=== PATIENT | female | born 1980 | race Caucasian/White ===

== ENCOUNTER 2017-07-16 16:33 | Emergency (ER) | payer MEDICAID, SELFPAY ==
[2017-07-16 16:36] VITALS: BP 169/94; PULSE 83; RESP 17; TEMP 37.5; O2SAT 96; BMI 46.2
--- NOTE | 2017-07-16 17:00 | RAD_ITS ---
STUDY: X-RAY - RIGHT KNEE REASON FOR EXAM: Female, 36 years old. Knee pain. TECHNIQUE: 4 view(s) of the knee. COMPARISON: None. FINDINGS: Normal visualized distal femur. Normal visualized proximal tibia and fibula. Normal proximal tibiofibular articulation. Normal medial femorotibial compartment. Normal lateral femorotibial compartment. Normal patellofemoral articulation. There is lateral tilt and subluxation of the patella. The soft tissue structures are unremarkable. RAD/Knee 4 or More Views IMPRESSION: Lateral tilt and subluxation of the patella. No acute pathology. Electronically Signed: Alek Richey MD at 17:43 EDT , Service support ,
--- NOTE | 2017-07-16 18:44 | ED.DCSUM_ITS ---
- ER Visit Summary Date of Service: 07/16/17 Chief Complaint: Knee pain History of Present Illness: The patient is a 36 F who presents with 1 week of right knee pain. This is been gradual onset and constant. She describes it as dull and aching. It is worse with movement. She also complains of a feeling of stiffness. She denies any fall or injury. She denies any other complaints. Physical Examination: Afebrile vitals are stable Moist mucous membranes Heart regular rate and rhythm Lungs are clear Abdomen soft Active full range of motion of the right knee but it is painful there is no appreciable effusion she is neurovascularly intact distally with brisk capillary refill normal sensation the extensor mechanism is intact Test Results: Right knee x-ray shows lateral tilt and subluxation of the patella Emergency Department Course and Treatment: She was placed in a knee immobilizer and given crutches. She was given a prescription for naproxen for symptom control. She was referred to orthopedics for outpatient follow-up was discharged home. Treatment Plan: [] Disposition: Discharge Impression: Right knee pain This note was generated with [employer] dictation software. It may contain incorrect words, spelling, and punctuation that were not noted in review of the chart prior to signing ED Disposition - Plan for ED Patient: Chief Complaint: Lower Extremity Injury Referrals: Care Physician,No Primary [Primary Care Provider] -
--- NOTE | 2017-07-16 18:45 | ED.DEP ---
ED Disposition - Plan for ED Patient: Chief Complaint: Lower Extremity Injury Instructions: ED Sprain Knee Prescriptions: Naproxen [Naprosyn] 500 mg PO BID #20 tab Referrals: Care Physician,No Primary [Primary Care Provider] - Nilo Crooks MD [STAFF PHYSICIAN] -
== END 2017-07-16 19:00 | disposition home or self-care (01) ==
PROVIDERS: Emergency Provider Emergency Medicine
DX: M25.561 Pain in right knee (principal); Z72.0 Tobacco use
CPT/HCPCS: 73564; 99282

== ENCOUNTER → 2019-11-06 | Outpatient (CLI) | payer MEDICAID, SELFPAY | END | disposition home or self-care (01) | LOC: LABSPEC 11-07 14:38 | PROVIDERS: Visit Provider Family Medicine | DX: Z11.59 Encounter for screening for other viral diseases (principal) | CPT/HCPCS: 87635; U0003 ==

== ENCOUNTER 2021-03-21 16:53 | Emergency (ER) | payer MEDICAID, SELFPAY ==
[2021-03-21 16:54] VITALS: BP 157/76; PULSE 88; RESP 18; TEMP 36.6; O2SAT 99; BMI 43.8
--- NOTE | 2021-03-21 17:07 | EX.ED.UPPERE ---
HPI History of Present Illness HPI Narrative: Patient presents with laceration to her left thumb that occurred today. Patient was using a knife to open a package when it slipped and cut her left thumb. Patient is right-hand dominant. Patient describes her pain as throbbing. Patient states nothing makes it worse and nothing makes it better. Patient denies any paresthesias or weakness. Patient states the bleeding has been persistent since the injury. Patient denies any other injuries. Chief Complaint: Laceration Informant: patient Occured/Mechanism Comment: Cut with a knife Onset/Context/Timing Onset: Today Context: Sudden Onset Timing: Continuous Quality of Pain: Throbbing Worsened by: Nothing Relieved by: Nothing Associated Symptoms Associated Symptoms: Negative for Parasthesia, Weakness and Loss of Funtion PFSH PFSH Medical History HTN (hypertension) Home Medications naproxen 500 mg PO BID #20 tab 07/16/17 [Rx Last Taken Unknown] lisinopril 10 mg tablet ea PO 03/17/20 [History Last Taken Unknown] Allergy/AdvReac Type Severity Reaction Status Date / Time acetaminophen [From Vicodin] Allergy Mild Itching Verified 03/21/21 16:56 hydrocodone [From Vicodin] Allergy Mild Itching Verified 03/21/21 16:56 Family History (Updated 03/17/20 @ 14:12 by Beth Perez) Father Myocardial infarction CVA (cerebral vascular accident) Surgical History H/O: History of cholecystectomy Social History household members: spouse and children housing: house number of children: 3 current occupational status: employed pets and animals: Yes pets and animals: dog(s) Smoking Status: Former smoker alcohol intake: never what type of physical activity do you participate in: walking and additional details: tredmill do you feel safe at home: Yes ROS ROS ED Constitutional Constitutional ED: Denies chills or fever(s) Eyes Eyes: Denies blurry vision or change in vision ENT ENT ED: Denies rhinorrhea or sore throat Cardiovascular Cardiovascular: Denies chest pain or palpitations Respiratory/Chest Respiratory/Chest: Denies cough or dyspnea Gastrointestinal Gastrointestinal: Denies nausea or vomiting Genitourinary Genitourinary ED: Denies dysuria or hematuria Musculoskeletal Musculoskeletal: Denies back pain or neck pain Integumentary Denies abscess or rash Neurologic Neurologic: Denies headache(s) or weakness Allergic/Immunologic Allergic/Immunologic ED: Denies mouth swelling or urticaria EXAM Physical Exam Const Vital Signs: 03/21/21 16:54 Temperature 97.9 F Temperature Source Temporal Pulse Rate 88 Respiratory Rate 18 Blood Pressure 157/76 H Blood Pressure Mean 103 Pulse Ox 99 Oxygen Delivery Method Room Air Positive well nourished and well developed General Appearance ED: well developed HEENT Reports moist mucous membranes Neck full ROM and supple Skin Trauma: laceration linear, actively bleeding, No foreign body present and superficial MDM MDM MDM Narrative Medical decision making narrative: Patient was given a tetanus booster here. Pressure dressing was applied. There is still some bleeding noted after the pressure dressing was removed. Finger tourniquet was applied. Bleeding it stopped. The wound was cleaned and closed with Dermabond skin adhesive. The tourniquet was removed. There is no active bleeding noted. Patient was advised to avoid Neosporin, bacitracin, or other Vaseline-based ointments. Patient was instructed to keep the wound clean and dry. Patient was instructed to clean it with soap daily. Patient was instructed to follow-up with her primary care physician in 5 to 7 days. Patient understood and was agreeable with the plan. All questions were answered. Discharge Plan Triage Chief Complaint: Laceration ED Provider: Faraz Tan Dx/Rx/DC Orders Instructions: ED Laceration, Extremity: Skin Glue Prescriptions: No Action lisinopril 10 mg tablet PO RF: 0 naproxen 500 MG tablet 500 mg PO BID Qty: 20 RF: 0 Primary Care Provider: Chuck Thurston Referrals: Chuck Thurston MD [Primary Care Provider] - 5-7 Days Disposition Disposition: Home, Self Care
[2021-03-21] MEDS: Diphth,Pertuss(Acell),Tet Vac 0.5 ML Vial IM (18:47)
== END 2021-03-21 18:51 | disposition home or self-care (01) ==
PROVIDERS: Emergency Provider Emergency Medicine; PCP Family Medicine; Visit Provider Emergency Medicine
DX: S61.012A Laceration without foreign body of left thumb without damage to nail, initial encounter (principal); W26.0XXA Contact with knife, initial encounter; Y93.89 Activity, other specified; I10 Essential (primary) hypertension; Z79.899 Other long term (current) drug therapy; Z87.891 Personal history of nicotine dependence
CPT/HCPCS: 12001; 90471; 90715; 99284